=== PATIENT | female | born 1965 | race Caucasian/White ===

== ENCOUNTER 2019-04-19 20:46 | Emergency (ER) | payer OTHER ==
[2019-04-19] MEDS ORDERED: ACETAMINOPHEN 500 MG TAB ONE (21:51)
[2019-04-19] MEDS ORDERED: KETOROLAC 30 MG/ML INJ ONE (21:58)
--- NOTE | 2019-04-19 23:06 | ER ---
Nurse's Notes [facility] Name: Viri Willard Age: 54 yrs Sex: Female : 1965 Arrival Date: 04/19/2019 Time: 20:49 Bed 8 Private MD: Diagnosis: Streptococcal pharyngitis Presentation: 04/19 21:00 Presenting complaint: Patient states: Sore throat, "It feels like it's swelling shut", lp1 pain with swallowing, fever at home, headache; States recent bariatric surgery 03/21/19 and cannot take Ibuprofen. Transition of care: patient was not received from another setting of care. Onset of symptoms was April 19, 2019. Risk Assessment: Do you want to hurt yourself or someone else? Patient reports no desire to harm self or others. Initial Sepsis Screen: Does the patient meet any 2 criteria? No. Patient's initial sepsis screen is negative. Does the patient have a suspected source of infection? No. Patient's initial sepsis screen is negative. Care prior to arrival: None. 21:00 Method Of Arrival: Ambulatory lp1 21:00 Acuity: CAROLINE 3 lp1 Triage Assessment: 21:33 Headache History: The patient has had previous headaches and this one is different than cc3 previous episodes. General: Appears in no apparent distress. uncomfortable, Behavior is calm, cooperative, appropriate for age. Pain: Complains of pain in head Also complains of fever. 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 - Social history:: Smoking status: Patient/guardian denies using tobacco. - Ebola Screening: : No symptoms or risks identified at this time. Screenin:05 Abuse screen: Denies threats or abuse. Denies injuries from another. Nutritional lp1 screening: No deficits noted. Tuberculosis screening: No symptoms or risk factors identified. 21:33 Fall Risk Ambulatory Aid- None/Bed Rest/Nurse Assist (0 pts). Gait- Normal/Bed cc3 Rest/Wheelchair (0 pts) Mental Status- Oriented to own ability (0 pts). Assessment: 21:10 General: Appears in no apparent distress. uncomfortable, Behavior is calm, cooperative, rr5 appropriate for age, Reports fever for. Pain: Complains of pain in head and throat Pain does not radiate. Pain currently is 5 out of 10 on a pain scale. Quality of pain is described as aching, Pain began gradually, Is intermittent. 21:10 Neuro: Level of Consciousness is awake, alert, obeys commands, Oriented to person, rr5 place, time, situation, Appropriate for age Reports headache frontal area. Cardiovascular: Capillary refill < 3 seconds Patient's skin is warm and dry. Respiratory: Reports runny nose Airway is patent Respiratory effort is even, unlabored, Respiratory pattern is regular, symmetrical. GI: Abdomen is round Reports recent bariatric surgery. : No signs and/or symptoms were reported regarding the genitourinary system. EENT: Throat is clear with gag reflex present, Reports pain throat pain Pain is 5 out of 10 on a pain scale. Derm: Skin is intact, is healthy with good turgor, Skin temperature is warm. Musculoskeletal: Circulation, motion, and sensation intact. Capillary refill < 3 seconds. 22:00 Reassessment: confirmed to patient as she verbalized I am not allergic to ibuprofen I rr5 just could not take the ibuprofen pill because of my bariatric surgery. ED provider aware with order made and carried out, see MAR. 23:10 Reassessment: Patient appears in no apparent distress at this time. Patient is alert, rr5 oriented x 3, equal unlabored respirations, skin warm/dry/pink. discharge instruction given and explained without complaints made, verbalized understanding. Patient states symptoms have improved. Vital Signs: 21:02 BP 149 / 94; Pulse 99; Resp 20; Temp 100.6(O); Pulse Ox 98% on R/A; Weight 99.79 kg lp1 (R); Height 5 ft. 4 in. (162.56 cm); Pain 5/10; 22:28 BP 149 / 63; Pulse 82; Resp 17 S; Pulse Ox 100% on R/A; cc3 22:52 BP 142 / 81; Pulse 75; Resp 20 S; Temp 100.4(O); Pulse Ox 98% on R/A; cc3 23:12 BP 109 / 48; Pulse 75; Resp 18; Temp 99.5; Pulse Ox 100% ; rr5 21:02 Body Mass Index 37.76 (99.79 kg, 162.56 cm) lp1 ED Course: 20:49 Patient arrived in ED. cf2 21:02 Triage completed. lp1 21:02 Arm band placed on right wrist. lp1 21:05 Watson Tijerina, JOSE LUIS is Primary Nurse. rr5 21:16 Patient has correct armband on for positive identification. Placed in gown. Bed in low rr5 position. Call light in reach. Pulse ox on. NIBP on. 21:19 Natan Lala MD is Attending Physician. tw4 21:33 Primary Nurse role handed off by aWtson Tijerina RN cc3 21:33 Abbie Lopez is Primary Nurse. cc3 23:15 No provider procedures requiring assistance completed. Patient did not have IV access rr5 during this emergency room visit. Administered Medications: 21:52 Drug: Tylenol 1000 mg Route: PO; rr5 23:00 Follow up: Response: No adverse reaction; Temperature is decreased rr5 23:00 Follow up: Response: No adverse reaction; Temperature is decreased cc3 22:03 CANCELLED (Other Intervention Used): TORadol 60 mg IVP once rr5 22:04 Drug: TORadol 60 mg Route: IM; Site: left gluteus; rr5 22:50 Follow up: Response: No adverse reaction; Pain is decreased rr5 Outcome: 23:05 Discharge ordered by . tw4 23:15 Discharged to home ambulatory, with family. rr5 23:15 Condition: stable 23:15 Discharge instructions given to patient, Instructed on discharge instructions, follow up and referral plans. medication usage, Demonstrated understanding of instructions, follow-up care, medications, Prescriptions given X 1. 23:16 Patient left the ED. rr5 Signatures: Berkley Martin RN RN lp1 Natan Lala MD MD tw4 Abbie Lopez cc3 Watson Tijerina RN RN rr5 Rudolph Francisco cf2 Corrections: (The following items were deleted from the chart) 22:01 21:04 Allergies: Ibuprofen; lp1 rr5
--- NOTE | 2019-04-19 23:06 | EDPHYS ---
Physician Documentation [facility] Name: Viri Willard Age: 54 yrs Sex: Female : 1965 Arrival Date: 04/19/2019 Time: 20:49 Bed 8 Private MD: ED Physician Natan Lala HPI: 04/20 04:01 This 54 yrs old Female presents to ER via Ambulatory with complaints of tw4 Headache, Rapid Heart Rate, Fever. 04:01 The patient complains of pain to the forehead. 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 - Social history:: Smoking status: Patient/guardian denies using tobacco. - Ebola Screening: : No symptoms or risks identified at this time. Vital Signs: 21:02 BP 149 / 94; Pulse 99; Resp 20; Temp 100.6(O); Pulse Ox 98% on R/A; Weight 99.79 kg lp1 (R); Height 5 ft. 4 in. (162.56 cm); Pain 5/10; 22:28 BP 149 / 63; Pulse 82; Resp 17 S; Pulse Ox 100% on R/A; cc3 22:52 BP 142 / 81; Pulse 75; Resp 20 S; Temp 100.4(O); Pulse Ox 98% on R/A; cc3 23:12 BP 109 / 48; Pulse 75; Resp 18; Temp 99.5; Pulse Ox 100% ; rr5 21:02 Body Mass Index 37.76 (99.79 kg, 162.56 cm) lp1 MDM: 21:19 Patient medically screened. tw4 04/19 21:48 Order name: Flu tw4 04/19 21:48 Order name: Strep; Complete Time: 23:01 tw4 04/19 23:01 Interpretation: Abnormal: GP A STREP SC \T\nbsp; GROUP A STREP SCREEN-- \T\nbsp; \T\nbsp; tw4 POSITIVE. Administered Medications: 21:52 Drug: Tylenol 1000 mg Route: PO; rr5 23:00 Follow up: Response: No adverse reaction; Temperature is decreased rr5 23:00 Follow up: Response: No adverse reaction; Temperature is decreased cc3 22:03 CANCELLED (Other Intervention Used): TORadol 60 mg IVP once rr5 22:04 Drug: TORadol 60 mg Route: IM; Site: left gluteus; rr5 22:50 Follow up: Response: No adverse reaction; Pain is decreased rr5 Disposition: 04/19/19 23:05 Discharged to Home. Impression: Streptococcal pharyngitis. - Condition is Stable. - Discharge Instructions: Pharyngitis, Pharyngitis, [id number]. - Prescriptions for Augmentin 875- 125 mg Oral Tablet - take 1 tablet by ORAL route every 12 hours for 10 days; 20 tablet. - Medication Reconciliation Form, Thank You Letter, Antibiotic Education, Prescription Opioid Use form. - Follow up: Private Physician; When: Upon discharge from the Emergency Department; Reason: Recheck today's complaints, Continuance of care. Signatures: Dispatcher [employer] Berkley Felton RN RN lp1 Natan Lala MD MD tw4 Watson Tijerina RN RN rr5 Abbie Lopez cc3 Corrections: (The following items were deleted from the chart) 22:01 21:04 Allergies: Ibuprofen; lp1 rr5 22:03 22:03 TORadol 60 mg IVP once ordered. rr5 rr5 23:16 23:05 04/19/2019 23:05 Discharged to Home. Impression: Streptococcal pharyngitis. rr5 Condition is Stable. Forms are Medication Reconciliation Form, Thank You Letter, Antibiotic Education, Prescription Opioid Use. Follow up: Private Physician; When: Upon discharge from the Emergency Department; Reason: Recheck today's complaints, Continuance of care. tw4
[2019-04-19 23:29] VITALS: BP 109/48; TEMP 99.5; O2SAT 100
== END 2019-04-19 23:16 | disposition home or self-care (01) ==
LOC: ER 20:46
DX: J02.0 Streptococcal pharyngitis (principal); Z91.040 Latex allergy status; I10 Essential (primary) hypertension
CPT/HCPCS: 87081; 87804; 96372; 99283